=== PATIENT | male | born 1985 ===

== ENCOUNTER 2018-01-18 21:05 | Emergency (ER) | payer MEDICAID ==
[2018-01-18 21:15] VITALS: BP 145/82; RESP 18; TEMP 98.8; O2SAT 99
--- NOTE | 2018-01-18 21:24 | ED PDOC ---
Upper Extremity Pain/Injury Time Seen by Provider: 01/18/18 21:14 Chief Complaint (Nursing): Finger,Hand,&Wrist Chief Complaint (Provider): Right wrist and hand pain History Per: Patient Additional Complaint(s): 32 year old right hand dominant presents to the ED complaining of right hand and wrist pain x4 hours after punching a cement wall. Patient did not take any meds for pain relief prior to arrival. Injury occurred about 1 hour ago. PMD: Dr. Wolf Past Medical History Reviewed: Historical Data, Nursing Documentation, Vital Signs Vital Signs: Last Vital Signs Temp 98.8 F 01/18/18 21:12 Pulse 100 H 01/18/18 21:12 Resp 18 01/18/18 21:12 BP 145/82 01/18/18 21:12 Pulse Ox 99 01/18/18 21:12 - Medical History PMH: Asthma - Surgical History Other surgeries: Knee surgery - Family History Family History: States: No Known Family Hx - Living Arrangements Living Arrangements: With Family - Social History Current smoker - smoking cessation education provided: No Alcohol: Occasional Drugs: Denies - Home Medications Home Medications: Ambulatory Orders Medication Instructions Recorded Naproxen 500 mg PO BID PRN #20 tab 11/02/15 - Allergies Allergies/Adverse Reactions: Allergies Allergy/AdvReac Type Severity Reaction Status Date / Time banana Allergy RASH Verified 01/18/18 21:12 Review of Systems ROS Statement: Except As Marked, All Systems Reviewed And Found Negative Musculoskeletal: Positive for: Hand Pain (Right wrist and hand pain) Physical Exam - Reviewed Nursing Documentation Reviewed: Yes Vital Signs Reviewed: Yes - Physical Exam Appears: Positive for: Well, Non-toxic Head Exam: Positive for: ATRAUMATIC, NORMOCEPHALIC Skin: Positive for: Normal Color. Negative for: Rash Eye Exam: Positive for: Normal appearance Neck: Positive for: Normal Extremity: Positive for: Other (Diffuse tenderness and swelling to dorsal aspect of right hand and wrist, decreased range of motion of digits of right hand as well as wrist, no obvious bony deformity, no snuffbox tenderness, normal cap refill, palpable radial pulse) Neurologic/Psych: Positive for: Alert, Oriented. Negative for: Motor/Sensory Deficits - ECG O2 Sat by Pulse Oximetry: 99 (RA) Pulse Ox Interpretation: Normal - Other Rad Right hand and wrist x-ray X-Ray: Interpreted by Me, Viewed By Me X-Ray Interpretation: no acute fx or dis Medical Decision Making Medical Decision Making: Initial Impression: 32 y/o with right hand and wrist pain Initial Plan: Ibuprofen 600mg PO Tylenol 975mg PO Right hand X-ray Right wrist X-ray Patient aware of x-ray results, all questions answered. Metacarpal splint applied. Patient advised to ice and elevate affected area and take NSAIDs for pain relief. He was referred to orthopedic on-call for follow-up. Scribe Attestation: Documented by René Sterling acting as a scribe for Gemma BENNETT. Provider Scribe Attestation: All medical record entries made by the Scribe were at my direction and personally dictated by me. I have reviewed the chart and agree that the record accurately reflects my personal performance of the history, physical exam, medical decision making, and the department course for this patient. I have also personally directed, reviewed, and agree with the discharge instructions and disposition. Procedures - Splinting Location: right hand/wrist Pre-Made Type: metal (Premade metacarpal metallic splint applied, secured with Bj wrap) Pre-Proc Neuro Vasc Exam: normal Post-Proc Neuro Vasc Exam: normal Disposition - Clinical Impression Clinical Impression: Hand contusion, Wrist sprain - Patient ED Disposition Is Patient to be Admitted: No Counseled Patient/Family Regarding: Studies Performed, Diagnosis, Need For Followup - Disposition Referrals: Ammon Adame III, MD [Staff Provider] - Warren Wolf MD [Family Provider] - Disposition: Routine/Home Disposition Time: 21:58 Condition: STABLE Additional Instructions: Ice, rest and elevate affected area as often as possible. [id number] Tylenol or Advil for pain as needed. Follow-up with primary doctor or orthopedist for any persistent symptoms. Instructions: Contusion (DC), Wrist Sprain (DC) Forms: [employer] ([place])
[2018-01-18 22:09] VITALS: PULSE 88
--- NOTE | 2018-01-19 08:59 | RAD ---
PROCEDURE: Right Hand Radiographs. HISTORY: trauma COMPARISON: None. FINDINGS: BONES: No acute fracture. Slight deformity of the 4th metacarpal, likely a sequelae of prior trauma. JOINTS: Unremarkable. SOFT TISSUES: Normal. OTHER FINDINGS: None. IMPRESSION: No demonstrated acute fracture or dislocation.
--- NOTE | 2018-01-19 09:00 | RAD ---
Date of service: 01/18/2018 PROCEDURE: Right Wrist Radiographs. HISTORY: trauma COMPARISON: None. FINDINGS: BONES: No acute fracture. Slight deformity of the fourth metacarpal, likely represent sequelae of prior trauma JOINTS: Unremarkable. SOFT TISSUES: Normal. OTHER FINDINGS: None. IMPRESSION: No demonstrated acute fracture or dislocation.
== END 2018-01-18 22:08 | disposition home or self-care (01) ==
LOC: H.ER 21:05
DX: S63.301A Traumatic rupture of unspecified ligament of right wrist, initial encounter (principal); S60.221A Contusion of right hand, initial encounter; J45.909 Unspecified asthma, uncomplicated; W22.01XA Walked into wall, initial encounter